=== PATIENT | female | born 2000 | race Caucasian/White ===

== ENCOUNTER 2020-07-27 18:14 | Emergency (ER) | payer OTHER, MEDICAID, SELFPAY ==
--- NOTE | ~2020-07-27 | CT_ITS ---
EXAMINATION: CT CERVICAL SPINE WITHOUT CONTRAST CLINICAL INFORMATION: Neck injury and pain. COMPARISON: None TECHNIQUE: Axial imaging. Sagittal and coronal reconstructions. This CT examination was performed using dose optimization techniques as appropriate, variously including the following: *Automated exposure control *Adjustment of mA and/or kV according to patient size (this includes techniques or standardized protocols for targeted exams where dose is matched to indication/reason for exam; i.e. extremities or head) *Use of iterative reconstruction technique DLP: 612 mGy-cm FINDINGS: There is straightening and slight reversal of the spinal curvature. The posterior alignment is maintained without significant subluxation. Craniocervical, atlantoaxial alignment is maintained. Predental space is maintained. Vertebral body heights are maintained. No acute fractures seen. No prevertebral soft tissue swelling. No suspicious thyroid findings seen. Nonspecific prominent cervical lymph nodes seen, with large lymph nodes measuring up to 1 cm in short axis. Lung apices are clear. CT/CT cervical spine wo con IMPRESSION: 1. Straightening and slight reversal of cervical curvature. 2. No CT evidence of acute fracture or traumatic subluxation. 3. Nonspecific prominent cervical lymph nodes.
--- NOTE | ~2020-07-27 | XR_ITS ---
EXAMINATION: XR THORACOLUMBAR SPINE CLINICAL INFORMATION: Upper back injury with pain COMPARISON: None TECHNIQUE: 3 views thoracic spine FINDINGS: The vertebral alignment is normal. No intrinsic bony abnormality. The disc heights and neural foramina are well maintained. The endplates and posterior elements are normal. No fracture or subluxation. The surrounding prevertebral soft tissues are unremarkable. XR/XR thoracic spine 2V IMPRESSION: No compression fractures or subluxations are identified. The disc spaces are preserved. No endplate changes are seen. The prevertebral soft tissues are normal. The foramina are patent.
[2020-07-27 18:32] VITALS: BP 160/87; PULSE 97; RESP 18; TEMP 36.9; O2SAT 98; BMI 38.9
--- NOTE | 2020-07-27 19:34 | ED.HEATRA ---
HPI - Head Injury General Chief complaint: Head Injury Stated complaint: Head and back injury Time Seen by Provider: 07/27/20 19:31 Source: patient Mode of arrival: ambulatory Limitations: no limitations History of Present Illness HPI Narrative: 19-year-old female came in for evaluation of head/neck pain and injury. 19-year-old female dropped her keys on the ground bent over to pick them up her dog pulled her suddenly forced her into the wall, patient had top of her head, this happened 2 days ago, no LOC, no headache. Patient has been complaining of neck pain and upper back pain, no upper extremities numbness or weakness. Related Data Allergies Allergy/AdvReac Type Severity Reaction Status Date / Time haloperidol [From HALDOL] Allergy Unknown ANGIOEDEMA Unverified 01/03/20 19:35 zinc [From COLD-EEZE] Allergy Unknown UNKNOWN Unverified 01/03/20 19:35 Review of Systems Review of Systems: All other systems are reviewed and are negative Constitutional: Reports as per HPI and Reports no additional constitutional complaints Eyes: Reports as per HPI and Reports no additional eye complaints Reports system reviewed and no additional complaints, except as documented Cardiovascular: Reports as per HPI and Reports no additional cardiovascular complaints Respiratory: Reports as per HPI and Reports no additional respiratory complaints Gastrointestinal: Reports as per HPI and Reports no additional gastrointestinal complaints Genitourinary: Reports no additional female genitourinary complaints Musculoskeletal: Reports no additional musculoskeletal complaints Skin/Breast: Reports system reviewed and no additional complaints, except as docu Psychiatric: Reports no additional psychiatric complaints Endocrine: Reports no additional endocrine complaints Hematologic/Lymphatic: Reports no additional hematologic/lymphatic complaints Allergic/Immunologic: Reports no additional allergic/immunologic complaints Reports system reviewed and no additional complaints, except as documented and Reports Abnormal speech present [facility] Past Medical History Medical History ADHD Depression Social History Social History Alcohol intake: never Smoking Status: Current every day smoker Smoked in Last 30 Days: No Substance Use Type: Marijuana Advance Directives: No Advance Directives Information Provided: Yes Physical Exam Vital Signs: Vital Signs: Last Vital Signs Temp 98.4 F 07/27/20 18:32 Pulse 97 07/27/20 18:32 Resp 18 07/27/20 18:32 BP 160/87 H 07/27/20 18:32 Pulse Ox 98 07/27/20 18:32 Body Mass Index 38.9 Vital signs have been reviewed as appeared to be correct. Blood pressure elevated. Heart rate normal. Respiration rate normal. Temperature normal. Oxygen saturation normal. Appearance: Alert. Oriented X3. No acute distress. Head: Normal external exam. Normocephalic. Atraumatic. No Velazco signs noted. No raccoon eyes noted Eyes: PERRLA. EOMI. Conjunctiva and sclera normal. Eyelids normal. ENT: TM's Normal. Pharynx normal. Uvula midline. Moist mucous membranes. No trismus noted. No drooling noted. No muffled voice noted. Neck: Normal inspection. Neck supple. FROM. No adenopathy. Thyroid Normal. No meningeal signs. No neck mass noted. CVS: Normal heart rate and rhythm. Heart sound normal. No murmurs noted. Pulses normal throughout. Respiratory: No respiratory distress. Painless inspiration. Breath sounds normal. No wheezes/rales/rhonchi noted. Chest nontender. No accessory muscle usage noted or decreased air movement noted. Abdomen: Soft and nontender. Bowel sounds normal in all 4 quadrants. No distention noted. No organomegaly noted. No visible injury noted. Back: No CVA tenderness. Full range of motion noted. Skin: Skin warm and dry. Normal skin color. Normal skin turgor. No rashes/lesions/lacerations noted. Extremities: No lower extremity edema. Extremities exhibit normal range of motion. Extremities nontender. Neuro: Oriented X 3. No motor deficit. No sensory deficit. Reflexes normal. Course Course Course Narrative: Assessment and plan. 19-year-old female with neck/upper back injury and pain. No acute fracture and a CT/x-ray. Will discharge patient with instruction of heating pad/NSAIDs p.r.n. MDM - Head Injury Imaging Data Cervical spine CT: Radiologist's impression: 1. Straightening and slight reversal of cervical curvature. 2. No CT evidence of acute fracture or traumatic subluxation. 3. Nonspecific prominent cervical lymph nodes. Thoracic x-ray: Radiologist's impression: No compression fractures or subluxations are identified. The disc spaces are preserved. No endplate changes are seen. The prevertebral soft tissues are normal. The foramina are patent. Discharge Plan Discharge Clinical Impression: Closed head injury, Neck pain Patient Disposition: Home, Self-Care Instructions: Contusion in Adults (ED) Referrals: iSena Bonilla MD [Primary Care Provider] - 2 days
== END 2020-07-27 21:23 | disposition home or self-care (01) ==
PROVIDERS: Emergency Provider Emergency Medicine; PCP Pediatrics Adolescent Medicine
DX: S09.90XA Unspecified injury of head, initial encounter (principal); W22.09XA Striking against other stationary object, initial encounter; M54.2 Cervicalgia; F12.90 Cannabis use, unspecified, uncomplicated; F17.200 Nicotine dependence, unspecified, uncomplicated; Y93.K1 Activity, walking an animal; Y92.414 Local residential or business street as the place of occurrence of the external cause; Y99.9 Unspecified external cause status
CPT/HCPCS: 72070; 72125; 99284

== ENCOUNTER 2020-09-20 01:53 | Emergency (ER) | payer OTHER, SELFPAY ==
--- NOTE | ~2020-09-20 | XR_ITS ---
EXAMINATION: XR FOOT, LEFT CLINICAL INFORMATION: Left foot pain COMPARISON: None TECHNIQUE: AP, lateral, and oblique views of the left foot. FINDINGS: Osseous alignment is anatomic. No acute fracture is seen. No significant focal soft tissue abnormality identified. XR/XR foot LT min 3V IMPRESSION: No acute findings identified.
[2020-09-20 02:18] VITALS: BP 130/77; PULSE 108; RESP 16; TEMP 37.3; O2SAT 95; BMI 34.3
[2020-09-20] MEDS: Acetaminophen 325 MG TABLET 975 MG PO (04:16)
[2020-09-20] MEDS: Ibuprofen 400 MG TABLET PO (04:18)
--- NOTE | 2020-09-20 04:20 | ED_ITS ---
HPI - Extremity Injury (Lower) General Chief Complaint: Extremity Injury, Lower Stated Complaint: l ankle pain Time Seen by Provider: 09/20/20 03:34 Source: patient Mode of arrival: ambulatory History of Present Illness HPI Narrative: This is a 20-year-old female who presents after having ?twisted her left ankle? resulting in pain and swelling at the left ankle. She denies any numbness or tingling into the foot. Related Data Allergies Allergy/AdvReac Type Severity Reaction Status Date / Time haloperidol [From HALDOL] Allergy Unknown ANGIOEDEMA Unverified 09/20/20 02:18 zinc [From COLD-EEZE] Allergy Unknown UNKNOWN Unverified 09/20/20 02:18 Review of Systems Review of Systems: Pertinent positives and negatives as stated in HPI 10 point review of systems is otherwise negative. PMFSH Past Medical History Source: nursing notes reviewed Medical History ADHD Depression Social History Social History Alcohol intake: never Substance Use Type: Marijuana Advance Directives: No Advance Directives Information Provided: No Patient : No Physical Exam Vital Signs: Vital Signs: Last Vital Signs Temp 99.1 F 09/20/20 02:18 Pulse 108 H 09/20/20 02:18 Resp 16 09/20/20 02:18 BP 130/77 09/20/20 02:18 Pulse Ox 95 09/20/20 02:18 Body Mass Index 34.3 VITAL SIGNS: Reviewed. GENERAL: Well developed, well nourished, in no acute distress. HEAD: Normocephalic/atraumatic, EYES: PERRLA, EOMI OROPHARYNX: no oral lesions noted, posterior pharynx clear NECK: Supple, no adenopathy LUNGS: Normal breath sounds. No adventitious sounds or accessory muscle use. SpO2<95> CARDIOVASCULAR: Regular rate and rhythm without noted murmurs ABDOMEN: Soft, non-tender, non-distended with bowel sounds. LEFT ANKLE: Mild soft tissue swelling at the lateral malleolus, passive range of motion with mild pain, palpable pulses and sensation intact with capillary refill less than 3 seconds. Course Course Course Narrative: This is a 20-year-old female with history and clinical presentation most likely consistent with a sprain and doubt fracture or dislocation. Review of x-ray is negative for any fracture or dislocation. Patient had Syed wrap placed and was discharged after receiving crutch training. Discharge Plan Discharge Clinical Impression: Sprain of ankle, left Patient Disposition: Home, Self-Care Instructions: Ankle Sprain (ED), Crutch Instructions (ED), R.I.C.E. Treatment (ED) Additional Instructions: 1. Recommend [id number] Tylenol/ibuprofen as needed for pain control. 2. You may bear weight as tolerated on the left foot. 3. Please follow up with the primary care provider in the next 2-3 days for re- evaluation. Referrals: Siena Bonilla MD [Primary Care Provider] - 2 days (Left ankle sprain) Interventions: ED Discharge Assessment Last Done: 09/20/20 05:10 Discharge Date/Time: 09/20/20 05:43
== END 2020-09-20 05:43 | disposition home or self-care (01) ==
PROVIDERS: Emergency Provider Student in an Organized Health Care Education/Training Program; PCP Pediatrics Adolescent Medicine
DX: S93.402A Sprain of unspecified ligament of left ankle, initial encounter (principal); M25.572 Pain in left ankle and joints of left foot; X50.1XXA Overexertion from prolonged static or awkward postures, initial encounter; Y93.9 Activity, unspecified; Y92.9 Unspecified place or not applicable; Y99.9 Unspecified external cause status
CPT/HCPCS: 73630; 99283

== ENCOUNTER 2022-11-03 00:41 | Emergency (ER) | payer MEDICAID, SELFPAY ==
[2022-11-03 00:43] VITALS: BP 144/84; PULSE 90; RESP 16; TEMP 37; O2SAT 96; BMI 38.6
[2022-11-03] MEDS: Acetaminophen 325 MG TABLET 650 MG PO (02:07)
[2022-11-03] MEDS: oxyCODONE HCl Immed Release 5 MG TABLET PO (02:54)
[2022-11-03] MEDS: Amoxicillin 500 MG CAPSULE PO (02:55)
[2022-11-03] MEDS: Ibuprofen 600 MG TABLET PO (02:55)
[2022-11-03 02:58] VITALS: BP 124/73; PULSE 85; RESP 12; TEMP 36.5; O2SAT 96
--- NOTE | 2022-11-03 03:07 | ED.DENTAL ---
HPI - Dental/Oral General Chief complaint: Dental/Oral Stated complaint: Dental Pain Time Seen by Provider: 11/03/22 02:35 Source: patient Mode of arrival: ambulatory Limitations: no limitations History of Present Illness HPI Narrative: Left lower dental pain for 2 days. No fever or chills. No sore throat, no difficulty breathing. Related Data Previous Rx's Medication Instructions Recorded amoxicillin 500 mg tablet 500 mg PO BID #14 tabs 11/03/22 ibuprofen 800 mg tablet 800 mg PO TID PRN pain #20 tabs 11/03/22 Allergies Allergy/AdvReac Type Severity Reaction Status Date / Time haloperidol [From HALDOL] Allergy Unknown ANGIOEDEMA Unverified 09/20/20 02:18 zinc [From COLD-EEZE] Allergy Unknown UNKNOWN Unverified 09/20/20 02:18 Review of Systems Review of Systems: All other systems are reviewed and are negative Constitutional: Reports as per HPI and Reports no additional constitutional complaints Eyes: Reports as per HPI and Reports no additional eye complaints Reports system reviewed and no additional complaints, except as documented Cardiovascular: Reports as per HPI and Reports no additional cardiovascular complaints Respiratory: Reports as per HPI and Reports no additional respiratory complaints Gastrointestinal: Reports as per HPI and Reports no additional gastrointestinal complaints Genitourinary: Reports no additional female genitourinary complaints Musculoskeletal: Reports no additional musculoskeletal complaints Skin/Breast: Reports system reviewed and no additional complaints, except as docu Psychiatric: Reports no additional psychiatric complaints Endocrine: Reports no additional endocrine complaints Hematologic/Lymphatic: Reports no additional hematologic/lymphatic complaints Allergic/Immunologic: Reports no additional allergic/immunologic complaints Reports system reviewed and no additional complaints, except as documented and Reports Abnormal speech present [facility] Past Medical History Medical History ADHD Depression Social History Social History Alcohol intake: current Alcohol intake frequency: a few times a week Alcohol type: hard liquor Smoked in Last 30 Days: No Use of substances other than those prescribed or required for medical reasons: No Substance Use Type: Marijuana Advance Directives: No Advance Directives Information Provided: Yes Patient : No Physical Exam Vital Signs: Vital Signs: Last Vital Signs Temp 97.7 F 11/03/22 02:58 Pulse 85 11/03/22 02:58 Resp 12 11/03/22 02:58 BP 124/73 11/03/22 02:58 Pulse Ox 96 11/03/22 02:58 O2 Del Method Room Air 11/03/22 02:58 BMI result Body Mass Index 38.6 Vital signs have been reviewed as appeared to be correct. Blood pressure normal. Heart rate normal. Respiration rate normal. Temperature normal. Oxygen saturation normal. Appearance: Alert. Oriented X3. No acute distress. Head: Normal external exam. Normocephalic. Atraumatic. No Velazco signs noted. No raccoon eyes noted. Dental exam: Tenderness over 2nd left lower molar tooth, no gum abscess or tenderness. Eyes: PERRLA. EOMI. Conjunctiva and sclera normal. Eyelids normal. ENT: TM's Normal. Pharynx normal. Uvula midline. Moist mucous membranes. No trismus noted. No drooling noted. No muffled voice noted. Neck: Normal inspection. Neck supple. FROM. No adenopathy. Thyroid Normal. No meningeal signs. No neck mass noted. CVS: Normal heart rate and rhythm. Heart sound normal. No murmurs noted. Pulses normal throughout. Respiratory: No respiratory distress. Painless inspiration. Breath sounds normal. No wheezes/rales/rhonchi noted. Chest nontender. No accessory muscle usage noted or decreased air movement noted. Abdomen: Soft and nontender. Bowel sounds normal in all 4 quadrants. No distention noted. No organomegaly noted. No visible injury noted. Back: No CVA tenderness. Full range of motion noted. Skin: Skin warm and dry. Normal skin color. Normal skin turgor. No rashes/lesions/lacerations noted. Extremities: No lower extremity edema. Extremities exhibit normal range of motion. Extremities nontender. Neuro: Oriented X 3. Cranial nerve exam: II-XII are grossly intact No motor deficit. No sensory deficit. Reflexes normal. Course Course Course Narrative: Dental pain, no william infection or gingivitis will start the patient on amoxicillin/ibuprofen and follow-up with dentist. Medications Administered Discontinued Medications Generic Name Dose Route Start Last Admin Trade Name Freq PRN Reason Stop Dose Admin Acetaminophen 650 mg 11/03/22 02:00 11/03/22 02:07 Acetaminophen 325 Mg Tablet PO 11/03/22 02:01 650 mg ONCE ONE Administration Amoxicillin 500 mg 11/03/22 02:45 11/03/22 02:55 Amoxicillin 500 Mg Capsule PO 11/03/22 02:46 500 mg ONCE ONE Administration Ibuprofen 600 mg 11/03/22 02:45 11/03/22 02:55 Ibuprofen 600 Mg Tablet PO 11/03/22 02:46 600 mg ONCE ONE Administration Oxycodone HCl 5 mg 11/03/22 02:45 11/03/22 02:54 Oxycodone Hcl Immed Release 5 Mg Tablet PO 11/03/22 02:46 5 mg ONCE ONE Administration Medical Decision Making Differential Diagnosis Differential Diagnoses: The differential diagnosis associated with the presentation includes (Dental pain, pharyngitis.) Admission/Observation Consideration of admission/observation: Escalation of care including admission/observation considered Discharge Plan Discharge Clinical Impression: Toothache Patient Disposition: Home, Self-Care Instructions: Toothache (ED) Additional Instructions: Follow-up with your dentist as soon as you can. Prescriptions: New amoxicillin 500 mg tablet 500 mg PO BID Qty: 14 0RF ibuprofen 800 mg tablet 800 mg PO TID PRN (Reason: pain) Qty: 20 0RF
== END 2022-11-03 03:18 | disposition home or self-care (01) ==
PROVIDERS: Emergency Provider Emergency Medicine
DX: K08.89 Other specified disorders of teeth and supporting structures (principal)
CPT/HCPCS: 99283; 99284

== ENCOUNTER 2023-05-08 04:27 | Emergency (ER) | payer SELFPAY ==
[2023-05-08 04:37] VITALS: PULSE 101; PULSE 107; O2SAT 97; O2SAT 99; BMI 34.3
--- NOTE | 2023-05-08 04:47 | PC.NURSE ---
upon arrival to the ED pt is hysterical and thrashing in the bed, provider, security and police at bedside. pt refusing vital signs.
[2023-05-08] MEDS: LORazepam 1 MG TABLET 2 MG PO (04:50)
--- NOTE | 2023-05-08 04:51 | ED_ITS ---
HPI - Alcohol General Chief Complaint: ETOH/Substance Use Stated Complaint: DUI Time Seen by Provider: 05/08/23 04:51 Source: patient, EMS and police Mode of arrival: EMS Limitations: no limitations History of Present Illness HPI narrative: 22-year-old female brought in by EMS under police custody for DUI. Patient is very anxious and agitated, when out with her friend drink alcohol declined using any recreational drugs, declined any chest pain or abdominal pain. Declined any trauma. Patient stated that she drinks alcohol only occasionally. Related Data Previous Rx's Medication Instructions Recorded amoxicillin 500 mg tablet 500 mg PO BID #14 tabs 11/03/22 ibuprofen 800 mg tablet 800 mg PO TID PRN pain #20 tabs 11/03/22 Allergies Allergy/AdvReac Type Severity Reaction Status Date / Time haloperidol [From HALDOL] Allergy Unknown ANGIOEDEMA Verified 05/08/23 04:35 zinc [From COLD-EEZE] Allergy Unknown UNKNOWN Verified 05/08/23 04:35 Review of Systems Review of Systems: All other systems are reviewed and are negative Constitutional: Reports as per HPI and Reports no additional constitutional complaints Eyes: Reports as per HPI and Reports no additional eye complaints Reports system reviewed and no additional complaints, except as documented Cardiovascular: Reports as per HPI and Reports no additional cardiovascular complaints Respiratory: Reports as per HPI and Reports no additional respiratory complaints Gastrointestinal: Reports as per HPI and Reports no additional gastrointestinal complaints Genitourinary: Reports no additional female genitourinary complaints Musculoskeletal: Reports no additional musculoskeletal complaints Skin/Breast: Reports system reviewed and no additional complaints, except as docu Psychiatric: Reports no additional psychiatric complaints Endocrine: Reports no additional endocrine complaints Hematologic/Lymphatic: Reports no additional hematologic/lymphatic complaints Allergic/Immunologic: Reports no additional allergic/immunologic complaints Reports system reviewed and no additional complaints, except as documented and Reports Abnormal speech present [facility] Past Medical History Onset Date is defined in the Problem List Problems that require an onset date and time if occurred within 24 hrs of arrival to the ED Aortic Dissection and Rupture; Neurologic impairment; Cardiopulmonary Arrest; Endotracheal Intubation; Insertion or Replacement of Mechanical Circulatory Assist Device Medical History ADHD Depression Social History Social History Alcohol intake: current Alcohol intake frequency: a few times a week Alcohol type: hard liquor Substance Use Type: Marijuana Physical Exam ED Vital Signs: Vital Signs - 24 hr 05/08/23 04:37 Pulse Rate 107 H Pulse Oximetry 99 Oxygen Delivery Method Room Air BMI result Body Mass Index 34.3 Vital signs have been reviewed and appear to be correct. Blood pressure elevated. Heart rate normal. Respiratory rate normal. Temperature normal. Oxygen saturation normal. Appearance: Anxious, agitated, No acute distress. Head: Normal external exam. Normocephalic. Atraumatic. No Velazco signs noted. No raccoon eyes noted Eyes: PERRLA. EOMI. Conjunctiva and sclera normal. Eyelids normal. ENT: TM's Normal. Pharynx normal. Uvula midline. Moist mucous membranes. No trismus noted. No drooling noted. No muffled voice noted. Neck: Normal inspection. Neck supple. FROM. No adenopathy. Thyroid Normal. No meningeal signs. No neck mass noted. CVS: Normal heart rate and rhythm. Heart sound normal. No murmurs noted. Pulses normal throughout. Respiratory: No respiratory distress. Painless inspiration. Breath sounds normal. No wheezes/rales/rhonchi noted. Chest nontender. No accessory muscle usage noted or decreased air movement noted. Abdomen: Soft and nontender. Bowel sounds normal in all 4 quadrants. No distention noted. No organomegaly noted. No visible injury noted. Back: No CVA tenderness. Full range of motion noted. Skin: Skin warm and dry. Normal skin color. Normal skin turgor. No rashes/lesions/lacerations noted. Extremities: No lower extremity edema. Extremities exhibit normal range of motion. Extremities nontender. Neuro: Cranial nerve exam: II-XII are grossly intact No motor deficit. No sensory deficit. Reflexes normal. Course Reevaluation(s) Reevaluation #1: Brought in under police custody for DUI, patient was anxious and agitated was given 2 mg of Ativan father was called by the police will come and pick the patient up home. Will discharge with a sober adult. Time: 04:55 Medical Decision Making Differential Diagnosis Differential Diagnoses: The differential diagnosis associated with the presentation includes (General medical screening exam, alcohol intoxication, anxiety.) Admission/Observation Consideration of admission/observation: Escalation of care including admission/observation considered Medications Administered Discontinued Medications Generic Name Dose Route Start Last Admin Trade Name Freq PRN Reason Stop Dose Admin Lorazepam 2 mg 05/08/23 04:47 05/08/23 04:50 Lorazepam 1 Mg Tablet PO 05/08/23 04:48 2 mg ONCE ONE Administration Discharge Plan Discharge Clinical Impression: Alcoholic intoxication Patient Disposition: Home, Self-Care Instructions: Alcohol Intoxication (ED) Prescriptions: No Action amoxicillin 500 mg tablet 500 mg PO BID Qty: 14 0RF ibuprofen 800 mg tablet 800 mg PO TID PRN (Reason: pain) Qty: 20 0RF
--- NOTE | 2023-05-08 04:53 | PC.NURSE ---
pt medicated per mar, pt is hysterically crying at this time. pt tolerated medications well with water.
--- NOTE | 2023-05-08 05:29 | PC.NURSE ---
pt dad at bedside, [facility] and [facility] [place] [employer] transporting pt out.
== END 2023-05-08 05:31 | disposition home or self-care (01) ==
LOC: HO.ED 05:12
PROVIDERS: Emergency Provider Emergency Medicine
DX: F41.1 Generalized anxiety disorder (principal); F43.0 Acute stress reaction; F10.229 Alcohol dependence with intoxication, unspecified; Y90.9 Presence of alcohol in blood, level not specified; Z79.899 Other long term (current) drug therapy
CPT/HCPCS: 99283; 99284